=== PATIENT | female | born 1990 | race Caucasian/White ===

== ENCOUNTER 2023-12-10 16:41 | Emergency (ER) | payer OTHER, SELFPAY ==
[2023-12-10] VITALS (7 sets, daily range): BP systolic 94–125; BP diastolic 70–76; PULSE 84–99; RESP 16–24; TEMP 36.8; O2SAT 99–100; BMI 28.3
--- NOTE | 2023-12-10 16:53 | DI.US.S_ITS ---
PROCEDURE: US PELVIC COMPLETE INDICATIONS: and bleeding, unsure how far along TECHNIQUE: Real-time scanning was performed of the pelvic organs, with image documentation. Additional endovaginal scanning was necessary due to incomplete visualization of the adnexal and endometrial structures by transabdominal scanning. COMPARISON: None. FINDINGS: Uterus: Uterus is anteverted and slightly enlarged in size at 8.8 x 6.4 x 5.0 cm. The myometrium is heterogeneous, no discrete uterine fibroid is seen. The endometrium measures 7.6 mm combined thickness. No intrauterine gestational sac is noted. No gross endometrial mass or fluid. Ovaries: The right ovary measures 3.4 x 2.9 x 1.5 cm, with a calculated ovarian volume of 7.6 cc. The left ovary measures 3.6 x 3.0 x 1.9 cm, with a calculated ovarian volume of 10.4 cc. The ovaries have a normal sonographic appearance. Less than 12 follicles can be seen in each ovary. Ill-defined hypoechoic structure with mixed solid and cystic component is seen in right adnexa inferior and medial to the right ovary . Other: No pathologic free abdominal or pelvic fluid. IMPRESSION: 1. No evidence of intrauterine gestation. No endometrial mass or fluid. 2. Normal appearing bilateral ovary. Ill-defined hypoechoic structure with mixed solid and cystic component noted in right adnexa inferior and medial to the right ovary, and show no definite internal vascularity. Ectopic gestational sac cannot be excluded. Follow-up with serial beta HCG levels and follow-up ultrasound is recommended. We strive to produce accurate, complete, and clear reports of imaging services. To assist us in improving patient care, this report was composed using standard report templates and voice recognition software. Therefore, it may contain abnormal punctuation, insertions and/or omissions. Occasional wrong-word or sound-alike substitutions may occur. Though we review the report and make efforts to correct it, we do recommend that the report be read carefully in proper context to recognize any text inaccuracies. Dictated by: Jostin Adame M.D. on 12/10/2023 at 17:48 Approved by: Jostin Adame M.D. on 12/10/2023 at 17:51
--- NOTE | 2023-12-10 17:45 | ED.FEMALEGU ---
HPI - Female Genitourinary <Shandra Lynn MD - Last Filed: 12/11/23 17:22> General Chief complaint: Vaginal Bleeding Stated complaint: just found out , bleeding Time Seen by Provider: 12/10/23 17:32 Source: patient Mode of arrival: Ambulatory History of Present Illness HPI Narrative: 33-year-old female at unknown gestational age presents by private vehicle for vaginal bleeding. Patient states she was told yesterday she was at outside hospital after going in for an unrelated issue. Patient states that she has been experiencing what she believes was normal menstrual period for the last 6 days. She believes she is blood type AB- from previous . Related Data Allergies Allergy/AdvReac Type Severity Reaction Status Date / Time Sulfa (Sulfonamide Allergy Verified 12/10/23 16:47 Antibiotics) Review of Systems <Shandra Lynn MD - Last Filed: 12/11/23 17:22> Review of Systems Narrative: Negative except as noted above Patient History <Shandra Lynn MD - Last Filed: 12/11/23 17:22> alcohol intake frequency: a few times a week Substance Use Type: does not use Exam <Shandra Lynn MD - Last Filed: 12/11/23 17:22> Initial Vital Signs Initial Vital Signs: Vital Signs Temperature 98.2 F 12/10/23 16:47 Pulse Rate 99 H 12/10/23 16:47 Respiratory Rate 18 12/10/23 16:47 Blood Pressure 118/76 12/10/23 16:47 Pulse Oximetry 99 12/10/23 16:47 Oxygen Delivery Method Room Air 12/10/23 16:47 Const: Awake, alert, no acute distress, nontoxic appearing Cardiac: regular rate, regular rhythm RESP: unlabored, clear bilaterally, no wheezing GI: Soft, nontender, nondistended, no rebound, no guarding MSK: Atraumatic, full range of motion, pulses equal Skin: Warm, Dry, intact, no rashes Neuro: AO x3, CN II-XII grossly intact, moves all extremities <Arron Becerra DO - Last Filed: 12/10/23 23:32> Initial Vital Signs Initial Vital Signs: Vital Signs Temperature 98.2 F 12/10/23 16:47 Pulse Rate 99 H 12/10/23 16:47 Respiratory Rate 18 12/10/23 16:47 Blood Pressure 118/76 12/10/23 16:47 Pulse Oximetry 99 12/10/23 16:47 Oxygen Delivery Method Room Air 12/10/23 16:47 Course <Shandra Lynn MD - Last Filed: 12/11/23 17:22> Orders Ordered: Discontinued Medications Rho Immune Globulin (Rho(D) Immune Globulin 1,500 Unit Syringe) 1,500 unit IM NOW ONE Stop: 12/10/23 18:40 Last Admin: 12/10/23 19:14 Dose: 1,500 unit Documented By: SUSAN Vital Signs Vital signs: Vital Signs - 8 hr 12/10/23 16:47 12/10/23 18:08 12/10/23 18:09 Temperature 98.2 F Pulse Rate 99 H 96 H Respiratory Rate 18 Blood Pressure 118/76 114/76 Pulse Oximetry 99 Oxygen Delivery Method Room Air 12/10/23 18:09 12/10/23 18:30 12/10/23 19:00 Temperature Pulse Rate 86 84 85 Respiratory Rate 20 16 Blood Pressure Pulse Oximetry 100 Oxygen Delivery Method 12/10/23 19:01 12/10/23 19:01 12/10/23 19:17 Temperature Pulse Rate 87 85 Respiratory Rate 20 24 Blood Pressure 94/73 Pulse Oximetry 100 Oxygen Delivery Method Room Air 12/10/23 19:17 Temperature Pulse Rate Respiratory Rate Blood Pressure 125/70 Pulse Oximetry Oxygen Delivery Method <Arron Becerra DO - Last Filed: 12/10/23 23:32> Orders Ordered: Discontinued Medications Rho Immune Globulin (Rho(D) Immune Globulin 1,500 Unit Syringe) 1,500 unit IM NOW ONE Stop: 12/10/23 18:40 Last Admin: 12/10/23 19:14 Dose: 1,500 unit Documented By: DAYTONS Vital Signs Vital signs: Vital Signs - 8 hr 12/10/23 16:47 12/10/23 18:08 12/10/23 18:09 Temperature 98.2 F Pulse Rate 99 H 96 H Respiratory Rate 18 Blood Pressure 118/76 114/76 Pulse Oximetry 99 Oxygen Delivery Method Room Air 12/10/23 18:09 12/10/23 18:30 12/10/23 19:00 Temperature Pulse Rate 86 84 85 Respiratory Rate 20 16 Blood Pressure Pulse Oximetry 100 Oxygen Delivery Method 12/10/23 19:01 12/10/23 19:01 12/10/23 19:17 Temperature Pulse Rate 87 85 Respiratory Rate 20 24 Blood Pressure 94/73 Pulse Oximetry 100 Oxygen Delivery Method Room Air 12/10/23 19:17 Temperature Pulse Rate Respiratory Rate Blood Pressure 125/70 Pulse Oximetry Oxygen Delivery Method MDM - Female Genitourinary <Shandra Lynn MD - Last Filed: 12/11/23 17:22> Differential Diagnosis Differential diagnosis: Likely urinary tract infection, bacterial vaginosis and trichomoniasis Lab Data 12/10/23 17:49 12/10/23 17:49 Labs: Lab Results 12/10/23 12/10/23 Range/Units 17:41 17:49 WBC 6.4 (4.5-11.0) X10^3/uL RBC 4.55 (4.0-5.2) X10^6/uL Hgb 13.3 (12.0-16.0) g/dL Hct 40.7 (36-46) % MCV 89.4 (80-100) fL MCH 29.2 (26-34) PG MCHC 32.7 (30-36) % RDW 13.6 (11.6-14.8) % Plt Count 249 (150-400) X10^3/uL Neut % (Auto) 63.7 (50-75) % Lymph % (Auto) 23.4 L (25-40) % Estill % (Auto) 9.2 (3-14) % Eos % (Auto) 2.9 (2-4) % Baso % (Auto) 0.8 (0-2) % Neut # (Auto) 4100 (9732-3867) /uL Lymph # (Auto) 1500 (2206-9283) /uL [place] # (Auto) 600 (0-900) /uL Eos # (Auto) 200 (0-450) /uL Baso # (Auto) 0 (0-100) /uL Sodium 136 L (137-145) mmol/L Potassium 3.9 (3.4-5.1) mmol/L Chloride 105 (98-107) mmol/L Carbon Dioxide 22 (22-32) mmol/L BUN 9 (7-17) mg/dL Creatinine 0.66 (0.52-1.04) mg/dL Estimated GFR > 60 (>60) mL/min BUN/Creatinine Ratio 13.6 (6-22) Glucose 115 H (70-100) mg/dL Calcium 9.0 (8.4-10.2) mg/dL Total Bilirubin 0.6 (0.2-1.3) mg/dL AST 37 H (14-36) IU/L ALT 17 (<35) IU/L Alkaline Phosphatase 61 (38-126) U/L Total Protein 7.1 (6.3-8.2) g/dL Albumin 4.2 (3.5-5.0) g/dL Globulin 2.9 (1.7-4.1) g/dL Albumin/Globulin Ratio 1.4 (1.0-2.8) HCG, Quant 709.4 mIU/mL Urine RBC None seen (0-5/HPF) Urine WBC None seen (0-5/HPF) Ur Squamous Epith Cells 1-5 /hpf (0-5/HPF) Urine Bacteria None seen (None) Ur Culture Indicated? Cult not indicated Vol Urine Centrifuged 10ml (spun) Blood Type A Negative Antibody Screen Negative Urine Dip Bedside Urine Glucose Negative Bedside Urine Bilirubin - Negative Bedside Urine Ketone +/- 5 Urine Specific Quebeck 1.020 Bedside Urine Occult Blood + Bedside Urine pH 6.0 Bedside Urine Protein - Negative Bedside Urine Urobilinogen - Negative Bedside Urine Nitrite - Negative Bedside Urine Leukocytes - Negative Esterase MDM Narrative Medical decision making narrative: Vaginal bleeding, just notified yesterday that she was . Believes blood type a B negative but patient does not have any documented type and screen in our system. I was notified by inorganic chemical technician that there did appear to be a suspicious adnexal mass concerning for ectopic . Still pending formal radiology read. Patient denies history of ectopic previously. Call placed to Dr. Celaya of OBGYN [phone]. Care of patient is signed over to Dr. Becerra at 6:00 p.m., still pending call back from OBGYN. <Arron Becerra, DO - Last Filed: 12/10/23 23:32> Lab Data Attestation: I reviewed the patient's lab results. Labs: Lab Results 12/10/23 12/10/23 Range/Units 17:41 17:49 WBC 6.4 (4.5-11.0) X10^3/uL RBC 4.55 (4.0-5.2) X10^6/uL Hgb 13.3 (12.0-16.0) g/dL Hct 40.7 (36-46) % MCV 89.4 (80-100) fL MCH 29.2 (26-34) PG MCHC 32.7 (30-36) % RDW 13.6 (11.6-14.8) % Plt Count 249 (150-400) X10^3/uL Neut % (Auto) 63.7 (50-75) % Lymph % (Auto) 23.4 L (25-40) % [place] % (Auto) 9.2 (3-14) % Eos % (Auto) 2.9 (2-4) % Baso % (Auto) 0.8 (0-2) % Neut # (Auto) 4100 (8855-6558) /uL Lymph # (Auto) 1500 (2750-8707) /uL [place] # (Auto) 600 (0-900) /uL Eos # (Auto) 200 (0-450) /uL Baso # (Auto) 0 (0-100) /uL Sodium 136 L (137-145) mmol/L Potassium 3.9 (3.4-5.1) mmol/L Chloride 105 (98-107) mmol/L Carbon Dioxide 22 (22-32) mmol/L BUN 9 (7-17) mg/dL Creatinine 0.66 (0.52-1.04) mg/dL Estimated GFR > 60 (>60) mL/min BUN/Creatinine Ratio 13.6 (6-22) Glucose 115 H (70-100) mg/dL Calcium 9.0 (8.4-10.2) mg/dL Total Bilirubin 0.6 (0.2-1.3) mg/dL AST 37 H (14-36) IU/L ALT 17 (<35) IU/L Alkaline Phosphatase 61 (38-126) U/L Total Protein 7.1 (6.3-8.2) g/dL Albumin 4.2 (3.5-5.0) g/dL Globulin 2.9 (1.7-4.1) g/dL Albumin/Globulin Ratio 1.4 (1.0-2.8) HCG, Quant 709.4 mIU/mL Urine RBC None seen (0-5/HPF) Urine WBC None seen (0-5/HPF) Ur Squamous Epith Cells 1-5 /hpf (0-5/HPF) Urine Bacteria None seen (None) Ur Culture Indicated? Cult not indicated Vol Urine Centrifuged 10ml (spun) Blood Type A Negative Antibody Screen Negative Urine Dip Bedside Urine Glucose Negative Bedside Urine Bilirubin - Negative Bedside Urine Ketone +/- 5 Urine Specific [place] 1.020 Bedside Urine Occult Blood + Bedside Urine pH 6.0 Bedside Urine Protein - Negative Bedside Urine Urobilinogen - Negative Bedside Urine Nitrite - Negative Bedside Urine Leukocytes - Negative Esterase Imaging Data US - OB: Radiologist's Impression: PROCEDURE: US PELVIC COMPLETE INDICATIONS: and bleeding, unsure how far along TECHNIQUE: Real-time scanning was performed of the pelvic organs, with image documentation. Additional endovaginal scanning was necessary due to incomplete visualization of the adnexal and endometrial structures by transabdominal scanning. COMPARISON: None. FINDINGS: Uterus: Uterus is anteverted and slightly enlarged in size at 8.8 x 6.4 x 5.0 cm. The myometrium is heterogeneous, no discrete uterine fibroid is seen. The endometrium measures 7.6 mm combined thickness. No intrauterine gestational sac is noted. No gross endometrial mass or fluid. Ovaries: The right ovary measures 3.4 x 2.9 x 1.5 cm, with a calculated ovarian volume of 7.6 cc. The left ovary measures 3.6 x 3.0 x 1.9 cm, with a calculated ovarian volume of 10.4 cc. The ovaries have a normal sonographic appearance. Less than 12 follicles can be seen in each ovary. Ill-defined hypoechoic structure with mixed solid and cystic component is seen in right adnexa inferior and medial to the right ovary . Other: No pathologic free abdominal or pelvic fluid. IMPRESSION: 1. No evidence of intrauterine gestation. No endometrial mass or fluid. 2. Normal appearing bilateral ovary. Ill-defined hypoechoic structure with mixed solid and cystic component noted in right adnexa inferior and medial to the right ovary, and show no definite internal vascularity. Ectopic gestational sac cannot be excluded. Follow-up with serial beta HCG levels and follow-up ultrasound is recommended. MDM Narrative Medical decision making narrative: Vaginal bleeding, just notified yesterday that she was . Believes blood type a B negative but patient does not have any documented type and screen in our system. I was notified by inorganic chemical technician that there did appear to be a suspicious adnexal mass concerning for ectopic . Still pending formal radiology read. Patient denies history of ectopic previously. Call placed to Dr. Celaya of OBGYN [phone]. Care of patient is signed over to Dr. Becerra at 6:00 p.m., still pending call back from OBGYN. Dr becerra: Received turned over. Review patient's history and physical exam. She is Rh negative. She was given RhoGAM. Her beta hCG his under 800. Ultrasound does not show a IUP and there is some suspicious findings around the right ovary. Patient has minimal if any abdominal tenderness but is having bleeding. Discussed the case with Dr. Celaya on-call for OB. Who recommended the patient be discharged home. Was given ectopic return precautions. Will contact the patient tomorrow for a follow-up within the next 48 hours for repeat beta hCG. I discussed all this with the patient. The patient was given information for Dr. Celaya's office. The no was sent to Dr. Celaya as well. Patient was given strict return precautions. She expressed understanding and agreement. Discharge Plan Departure Patient Disposition: Home Clinical Impression: Threatened miscarriage Instructions: Threatened Miscarriage Activity Restrictions/Additional Instructions: You should receive a call from the journeyman pipef[facility] office here at the hospital sometime tomorrow morning for a follow-up. If you do not hear from them by noon please contact them with the number provided below for follow-up. If your symptoms worsen to include fevers, worsening pain, bleeding more than several pads an hour for several hours in a row please return to the emergency department for further evaluation. Referrals: Brice Celaya MD [Physician] - Candida Tai RN [Primary Care Provider] - Stand Alone Forms: Patient Portal/API
[2023-12-10 18:10] LABS: Add Manual Diff / Slide Review NO; Basophils Absolute Auto 0 /uL (0-100); Basophils Percent Auto 0.8 % (0-2); Eosinophils Absolute Auto 200 /uL (0-450); Eosinophils Percent Auto 2.9 % (2-4); Hematocrit 40.7 % (36-46); Hemoglobin 13.3 g/dL (12.0-16.0); Lymphocytes Absolute Auto 1500 /uL (1100-4500); Lymphocytes Percent Auto 23.4 % (25-40); Mean Corpuscular HGB Conc 32.7 % (30-36); Mean Corpuscular Hemoglobin 29.2 PG (26-34); Mean Corpuscular Volume 89.4 fL (80-100); Monocytes Absolute Auto 600 /uL (0-900); Monocytes Percent Auto 9.2 % (3-14); Neutrophils Absolute Auto 4100 /uL (1500-7000); Neutrophils Percent Auto 63.7 % (50-75); Platelet Count 249 X10^3/uL (150-400); Red Blood Cell Count 4.55 X10^6/uL (4.0-5.2); Red Cell Distribution Width 13.6 % (11.6-14.8); White Blood Cell Count 6.4 X10^3/uL (4.5-11.0)
[2023-12-10 18:13] LABS: Bacteria Urine None Seen; RBC Urine None Seen (0-5/HPF); Squamous Epithelial Cell Urine 1-5 /HPF (0-5/HPF); Urine Volume 10mL (spun); WBC Urine None Seen (0-5/HPF)
[2023-12-10 18:14] LABS: Culture Indicated Urine Cult Not Indicated
[2023-12-10 18:26] LABS: Alanine Aminotransferase 17 IU/L (<35); Albumin 4.2 g/dL (3.5-5.0); Albumin Globulin Ratio 1.4 (1.0-2.8); Alkaline Phosphatase 61 U/L (38-126); Aspartate Aminotransferase 37 IU/L (14-36); BUN Creatinine Ratio 13.6 (6-22); Bilirubin Total 0.6 mg/dL (0.2-1.3); Blood Urea Nitrogen 9 mg/dL (7-17); Carbon Dioxide 22 mmol/L (22-32); Chloride 105 mmol/L (98-107); Estimated Glomerular Filt Rate > 60 mL/min (>60); Globulin 2.9 g/dL (1.7-4.1); Glucose 115 mg/dL (70-100); HEMOLYSIS 47 (0-50); Potassium 3.9 mmol/L (3.4-5.1); Sodium 136 mmol/L (137-145); Total Protein 7.1 g/dL (6.3-8.2)
[2023-12-10 18:43] LABS: HCG Quantitative /Beta subunit 709.4 mIU/mL
[2023-12-10] MEDS: RHO(D) IMMUNE GLOBULIN 1,500 UNIT SYRINGE 1500 UNIT IM (19:14)
--- NOTE | 2023-12-10 19:24 | PC.NURSE ---
pt states she was seen at [facility] yesterday for lack of BM for two weeks and called today told she was . Pt took home test that was also positive. she is here due to vaginal bleeding that she thought was her regular period. patient states she has had regular periods since her done in august. she did not know she was .
== END 2023-12-10 19:41 | disposition home or self-care (01) ==
PROVIDERS: Emergency Medicine; Emergency Provider Emergency Medicine; PCP Nurse Practitioner Family
DX: O20.0 Threatened abortion (principal); Z3A.00 Weeks of gestation of pregnancy not specified
CPT/HCPCS: 36415; 76830; 76856; 80053; 81003; 81015; 84702; 85025; 86850; 86900; 86901; 96372; 99284; J2790

== ENCOUNTER → 2023-12-12 16:50 | Outpatient (CLI) | payer OTHER, SELFPAY ==
[2023-12-12 17:53] LABS: HCG Quantitative /Beta subunit 890.5 mIU/mL
== END ==
PROVIDERS: PCP Nurse Practitioner Family; Referring Provider Obstetrics & Gynecology; Visit Provider Obstetrics & Gynecology
DX: O20.0 Threatened abortion (principal)
CPT/HCPCS: 36415; 84702

== ENCOUNTER 2023-12-12 17:18 | Observation (INO) | payer OTHER, SELFPAY ==
[2023-12-12] VITALS (11 sets, daily range): BP systolic 110–127; BP diastolic 69–80; PULSE 81–104; RESP 11–19; TEMP 36.7–36.8; O2SAT 92–100; BMI 28.3
--- NOTE | 2023-12-12 | PATH_ITS ---
[facility] Accession Number: [id number] No. of containers..01 Tissue . 01 Material submitted: . fallopian tube - RIGHT FALLOPIAN TUBE . 01 Diagnosis: RIGHT FALLOPIAN TUBE, RIGHT SALPINGECTOMY: Findings consistent with ectopic tubal , please see microscopic description. Background salpingitis isthmica nodosa. Negative for malignancy. MRV 12/17/2023 1334 Local . 01 Electronically signed: . Jeromy Rhodes MD, Pathologist NPI- [id number] . 01 Gross description: . Received in formalin with two identifiers and right fallopian tube, is a dilated fallopian tube measuring 6.2 cm in length and ranging from 0.7 to 2.2 cm in diameter. The serosa is violaceous and intact with a cystic structure measuring 0.7 cm in greatest dimension, filled with sheets serous fluid. Sectioning reveals a dilated lumen filled with solid hemorrhagic material with no tissue identified. Night Filler sections to include one-half of bisected fimbriae and cross-sections are submitted in cassettes A1-A2. ([id number]) /SHARI 12/16/2023 1028 Local . 01 Microscopic: . Microscopic examination reveals dilated lumen of the fallopian tube with hemorrhage, immature chorionic villi, and focal decidualized changes, consistent with ectopic tubal . 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 . There is no atypia or malignancy. . 01 Pathologist provided ICD-10: O00.101 . 01 CPT . 319734 Specimen Comment: A courtesy copy of this report has been sent to [facility] Pathology Performed at: 01 [facility] [address] [place] [address] [address] [facility], [place], [place] [id number] MD Jamari Larson MD Phone: [phone]
--- NOTE | 2023-12-12 17:30 | DI.US.S_ITS ---
PROCEDURE: US PELVIC COMPLETE INDICATIONS: right possible ectopic TECHNIQUE: Real-time scanning was performed of the pelvic organs, with image documentation. Additional endovaginal scanning was necessary due to incomplete visualization of the adnexal and endometrial structures by transabdominal scanning. COMPARISON: [facility], US, US PELVIC COMPLETE, 12/10/2023, 17:16. FINDINGS: Uterus: Uterus is anteverted and normal in size at 8.4 x 6.5 x 4.9 cm. The myometrium is homogeneous. The endometrium measures 4 mm combined thickness. No intrauterine is seen. Ovaries: The right ovary measures 3.2 x 1.7 x 1.9 cm, with a calculated ovarian volume of 5.4 cc. The left ovary measures 3.6 x 2.3 x 2.3 cm, with a calculated ovarian volume of 10.0 cc. The ovaries have a normal sonographic appearance. Less than 12 follicles can be seen in each ovary. Persistent heterogeneous right adnexal mass measuring 2.4 x 2.0 x 1.8 centimeters with vascularity. Other: No pathologic free abdominal or pelvic fluid. IMPRESSION: Persistent right adnexal mass measuring 2.4 centimeters with heterogeneous tissue and vascularity. Ectopic is not excluded and beta HCG trend and follow-up ultrasound is recommended. No intrauterine is seen. We strive to produce accurate, complete, and clear reports of imaging services. To assist us in improving patient care, this report was composed using standard report templates and voice recognition software. Therefore, it may contain abnormal punctuation, insertions and/or omissions. Occasional wrong-word or sound-alike substitutions may occur. Though we review the report and make efforts to correct it, we do recommend that the report be read carefully in proper context to recognize any text inaccuracies. Dictated by: Michael Arredondo M.D. on 12/12/2023 at 18:54 Approved by: Michael Arredondo M.D. on 12/12/2023 at 18:56
[2023-12-12 18:19] LABS: Add Manual Diff / Slide Review NO; Basophils Absolute Auto 100 /uL (0-100); Basophils Percent Auto 0.8 % (0-2); Eosinophils Absolute Auto 300 /uL (0-450); Eosinophils Percent Auto 4.9 % (2-4); Hemoglobin 12.5 g/dL (12.0-16.0); Lymphocytes Absolute Auto 1600 /uL (1100-4500); Lymphocytes Percent Auto 26.2 % (25-40); Mean Corpuscular HGB Conc 32.9 % (30-36); Mean Corpuscular Hemoglobin 29.4 PG (26-34); Mean Corpuscular Volume 89.5 fL (80-100); Monocytes Absolute Auto 600 /uL (0-900); Monocytes Percent Auto 9.5 % (3-14); Neutrophils Absolute Auto 3600 /uL (1500-7000); Neutrophils Percent Auto 58.6 % (50-75); Platelet Count 235 X10^3/uL (150-400); Red Blood Cell Count 4.25 X10^6/uL (4.0-5.2); Red Cell Distribution Width 13.9 % (11.6-14.8); White Blood Cell Count 6.2 X10^3/uL (4.5-11.0)
[2023-12-12 18:33] LABS: Alanine Aminotransferase 14 IU/L (<35); Albumin Globulin Ratio 1.4 (1.0-2.8); Alkaline Phosphatase 53 U/L (38-126); Aspartate Aminotransferase 20 IU/L (14-36); Bilirubin Total 0.5 mg/dL (0.2-1.3); Blood Urea Nitrogen 10 mg/dL (7-17); Calcium 8.8 mg/dL (8.4-10.2); Carbon Dioxide 27 mmol/L (22-32); Chloride 105 mmol/L (98-107); Estimated Glomerular Filt Rate > 60 mL/min (>60); Globulin 2.8 g/dL (1.7-4.1); Glucose 91 mg/dL (70-100); HEMOLYSIS < 15 (0-50); Potassium 3.4 mmol/L (3.4-5.1); Sodium 136 mmol/L (137-145); Total Protein 6.8 g/dL (6.3-8.2)
--- NOTE | 2023-12-12 18:36 | ED_ITS ---
HPI - General Adult General Chief complaint: Urogenital-Female Stated complaint: poss ectopic preg/pain/ref OB Time Seen by Provider: 12/12/23 17:30 Source: patient Mode of arrival: Ambulatory History of Present Illness HPI narrative: Patient is a 33-year-old female. Rh negative. I evaluated her here in the emergency department approximately 48 hours ago. Had an indeterminate with vaginal bleeding. No abdominal pain. Had a hCG quantitative level that was below threshold and no IUP seen on ultrasound. She had a follow-up today. Was sent back to the emergency department she now has abdominal discomfort. Repeat quant shows very minimal rise. Ultrasound is relatively unremarkable. She reports no vaginal bleeding. No fevers. No vomiting. Related Data Allergies Allergy/AdvReac Type Severity Reaction Status Date / Time Sulfa (Sulfonamide Allergy Verified 12/12/23 19:51 Antibiotics) Review of Systems Review of Systems Narrative: See HPI Patient History Social History household members: spouse Smoking Status: Former smoker Smoking Status: Former smoker alcohol intake frequency: a few times a week Substance Use Type: does not use Exam Initial Vital Signs Initial Vital Signs: Vital Signs Temperature 98.3 F 12/12/23 17:27 Pulse Rate 99 H 12/12/23 17:27 Respiratory Rate 18 12/12/23 17:27 Blood Pressure 115/77 12/12/23 17:27 Pulse Oximetry 100 12/12/23 17:27 Oxygen Delivery Method Room Air 12/12/23 17:27 HENMT Head: normal to inspection and normocephalic Resp Effort & Inspection: normal respiratory effort Cardio Rate: tachycardic GI Inspection: non-distended Course Orders Ordered: ED Orders 12/12/23 17:30 US pelvic complete Stat 12/12/23 18:12 CBC Auto Diff [Complete Blood Count AUTO DIFF] Stat CMP [Comprehensive Metabolic Panel] Stat HCG Quantitative /Beta subunit Stat Discontinued Medications Bupivacaine HCl (Bupivacaine 0.25% (Pf) Vial) 30 ml INJ NOW ONE Stop: 12/12/23 21:23 Last Admin: 12/12/23 21:22 Dose: 30 ml Documented By: EW Hydromorphone HCl (Hydromorphone 1 Mg Inj) 0 mg IV Q5MIN PRN PRN Reason: Pain, Mild (1-3) Hydromorphone HCl (Hydromorphone 1 Mg Inj) 0 mg IV Q5MIN PRN PRN Reason: Pain, Moderate (4-6) Last Admin: 12/12/23 22:15 Dose: 0.5 mg Documented By: AMERICO Hydromorphone HCl (Hydromorphone 1 Mg Inj) 0 mg IV Q5MIN PRN PRN Reason: Pain, Severe (7-10) Lactated Ringer's (Lactated Ringers) 1,000 mls @ 42 mls/hr IV CONT FAINA Last Infusion: 12/12/23 22:37 Dose: 42 mls/hr Documented By: Admin: 12/12/23 21:38 Dose: 42 mls/hr Documented By: Infusion: 12/12/23 21:38 Dose: Infused Documented By: Admin: 12/12/23 19:50 Dose: 42 mls/hr Documented By: AMERICO Lactated Ringer's (Lactated Ringers) 1,000 mls @ 42 mls/hr IV NOW ONE Stop: 12/13/23 21:25 Last Infusion: 12/12/23 21:38 Dose: Infused Documented By: Admin: 12/12/23 21:37 Dose: 42 mls/hr Documented By: EMERITA Ondansetron HCl (Ondansetron 4 Mg/2 Ml Inj) 4 mg IV NOW PRN PRN Reason: Nausea And Vomiting Last Admin: 12/12/23 22:16 Dose: 4 mg Documented By: AMERICO Oxycodone HCl (Oxycodone Ir 5 Mg Tablet) 5 mg PO PACUNOW PRN PRN Reason: Mild or moderate pain Last Admin: 12/12/23 22:25 Dose: 5 mg Documented By: Admin: 12/12/23 22:09 Dose: 5 mg Documented By: AMERICO Vital Signs Vital signs: Vital Signs - 8 hr 12/12/23 17:27 Temperature 98.3 F Pulse Rate 99 H Respiratory Rate 18 Blood Pressure 115/77 Pulse Oximetry 100 Oxygen Delivery Method Room Air Medical Decision Making Medical Records Medical records reviewed: Yes I reviewed the patient's medical records. Lab Data Lab results reviewed: Yes I reviewed the patient's lab results. 12/12/23 18:12 12/12/23 18:12 Labs: Lab Results 12/12/23 12/12/23 Range/Units 18:11 18:12 WBC 6.2 (4.5-11.0) X10^3/uL RBC 4.25 (4.0-5.2) X10^6/uL Hgb 12.5 (12.0-16.0) g/dL Hct 38.0 (36-46) % MCV 89.5 (80-100) fL MCH 29.4 (26-34) PG MCHC 32.9 (30-36) % RDW 13.9 (11.6-14.8) % Plt Count 235 (150-400) X10^3/uL Neut % (Auto) 58.6 (50-75) % Lymph % (Auto) 26.2 (25-40) % [place] % (Auto) 9.5 (3-14) % Eos % (Auto) 4.9 H (2-4) % Baso % (Auto) 0.8 (0-2) % Neut # (Auto) 3600 (7330-7847) /uL Lymph # (Auto) 1600 (0677-6492) /uL [place] # (Auto) 600 (0-900) /uL Eos # (Auto) 300 (0-450) /uL Baso # (Auto) 100 (0-100) /uL Sodium 136 L (137-145) mmol/L Potassium 3.4 (3.4-5.1) mmol/L Chloride 105 (98-107) mmol/L Carbon Dioxide 27 (22-32) mmol/L BUN 10 (7-17) mg/dL Creatinine 0.77 (0.52-1.04) mg/dL Estimated GFR > 60 (>60) mL/min BUN/Creatinine Ratio 13.0 (6-22) Glucose 91 (70-100) mg/dL Calcium 8.8 (8.4-10.2) mg/dL Total Bilirubin 0.5 (0.2-1.3) mg/dL AST 20 (14-36) IU/L ALT 14 (<35) IU/L Alkaline Phosphatase 53 (38-126) U/L Total Protein 6.8 (6.3-8.2) g/dL Albumin 4.0 (3.5-5.0) g/dL Globulin 2.8 (1.7-4.1) g/dL Albumin/Globulin Ratio 1.4 (1.0-2.8) HCG, Quant 892.6 mIU/mL Blood Type A Negative Antibody Screen Positive Antibody Identification Anti-D Point of Care Testing Test Results Positive Point of care testing: Point of Care Testing Test Results Positive Imaging Data US - OB: Radiologist's Impression: PROCEDURE: US PELVIC COMPLETE INDICATIONS: right possible ectopic TECHNIQUE: Real-time scanning was performed of the pelvic organs, with image documentation. Additional endovaginal scanning was necessary due to incomplete visualization of the adnexal and endometrial structures by transabdominal scanning. COMPARISON: [facility], US, US PELVIC COMPLETE, 12/10/2023, 17:16. FINDINGS: Uterus: Uterus is anteverted and normal in size at 8.4 x 6.5 x 4.9 cm. The myometrium is homogeneous. The endometrium measures 4 mm combined thickness. No intrauterine is seen. Ovaries: The right ovary measures 3.2 x 1.7 x 1.9 cm, with a calculated ovarian volume of 5.4 cc. The left ovary measures 3.6 x 2.3 x 2.3 cm, with a calculated ovarian volume of 10.0 cc. The ovaries have a normal sonographic appearance. Less than 12 follicles can be seen in each ovary. Persistent heterogeneous right adnexal mass measuring 2.4 x 2.0 x 1.8 centimeters with vascularity. Other: No pathologic free abdominal or pelvic fluid. IMPRESSION: Persistent right adnexal mass measuring 2.4 centimeters with heterogeneous tissue and vascularity. Ectopic is not excluded and beta HCG trend and follow-up ultrasound is recommended. No intrauterine is seen. MDM Narrative Medical decision making narrative: Patient was seen by scroll machine operator here in the emergency department in the plan will be is to take her to the operating room. She received RhoGAM 48 hours ago. Patient expressed understanding of the plan. Discharge Plan Departure Patient Disposition: Admitted to Surgery Clinical Impression: Ectopic Qualifiers: Location of ectopic : tubal Intrauterine status: without intrauterine Laterality: right Qualified Code(s): O00.101 - Right tubal without intrauterine Admit Date/Time: 12/12/23 18:39 Admit Provider: Jada Ponce
[2023-12-12 18:50] LABS: HCG Quantitative /Beta subunit 892.6 mIU/mL
--- NOTE | 2023-12-12 18:52 | P.HPOB_ITS ---
History of Present Illness History of Present Illness Reason for admission: other ( of unknown location ) Narrative: Kizzy Osborn is a 33 year old female at unknown early gestational age, concern for possible ectopic. Pt was seen originally in ED 12/09 with c/o vaginal bleeding, R sided pelvic pain with +UPT. bHCG 709 at that time, TVUS without evidence of IUP and concern for possible R adnexal mass unable to exclude ectopic. Pt was hemodynamically stable and was discharged to home after receiving Rhogam for AB- blood type and close interval follow-up in office today. At time of office presentation pt stated that she was having more pelvic pain and to expedite care was transferred to ED for further evaluation. Repeat bHCG today is 890; formal US report is pending however on review of images there is now clear evidence of free CDS fluid vs bleeding. Pt states current pain is 5/10 but increasing. Last solid PO at 1100 today. TSVD x1, denies h/o prior ectopic, denies h/o GC/CT/PID, non-smoker No current hormonal contraception PFSH Social History Smoking Status: Former smoker Meds Home Medications and Allergies Allergies Allergy/AdvReac Type Severity Reaction Status Date / Time Sulfa (Sulfonamide Allergy Verified 12/12/23 16:46 Antibiotics) Review of Systems Review of Systems Narrative: +pelvic pain, vaginal spotting, remainder as per HPI Exam Vital Signs (past 8 hours): - 12/12/23 17:27 Temperature 98.3 F Pulse Rate 99 H Respiratory Rate 18 Blood Pressure 115/77 Pulse Oximetry 100 Oxygen Delivery Method Room Air Oxygen Delivery Method Room Air Narrative Exam Narrative: well-nourished female, uncomfortable but non-toxic appearing Const Nutritional Appearance: average body habitus HENMT Mouth: moist mucous membranes Neck Neck: normal visual inspection Resp Effort & Inspection: normal respiratory effort GI Inspection: normal to inspection Other: diffusely tender to deep palpation BLQ, +rebound with deep palpation, soft/non- rigid Other: deferred per shared decision making with patient Skin General: no rashes or lesions noted Psych Appearance: grossly normal Objective Imaging pelvic US : My impression: +CDS fluid, no evidence of IUP; consistent with ruptured ectopic Labs 12/12/23 18:12 12/12/23 18:12 Labs: Laboratory Results - last 24 hr 12/12/23 18:12 WBC 6.2 RBC 4.25 Hgb 12.5 Hct 38.0 MCV 89.5 MCH 29.4 MCHC 32.9 RDW 13.9 Plt Count 235 Neut % (Auto) 58.6 Lymph % (Auto) 26.2 [place] % (Auto) 9.5 Eos % (Auto) 4.9 H Baso % (Auto) 0.8 Neut # (Auto) 3600 Lymph # (Auto) 1600 [place] # (Auto) 600 Eos # (Auto) 300 Baso # (Auto) 100 Sodium 136 L Potassium 3.4 Chloride 105 Carbon Dioxide 27 BUN 10 Creatinine 0.77 Estimated GFR > 60 BUN/Creatinine Ratio 13.0 Glucose 91 Calcium 8.8 Total Bilirubin 0.5 AST 20 ALT 14 Alkaline Phosphatase 53 Total Protein 6.8 Albumin 4.0 Globulin 2.8 Albumin/Globulin Ratio 1.4 HCG, Quant 892.6 Assessment & Plan Assessment and plan (1) Ectopic : Qualifiers: Intrauterine status: without intrauterine L aterality: right Location of ectopic : tubal Qualified Code(s): O 00.101 - Right tubal without intrauterine Status: Acute Plan Patient counseled on recommendation to proceed to OR for definitive evaluation given her worsening pain and evidence of CDS fluid on today's pelvic US in tandem with inappropriate rise in bHCG. Risks, benefits and alternatives to surgical management were review and patient desires to proceed with definitive surgical management at this time. 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 ED provider updated on plan of care. Pt NPO, will plan to consent in pre-operative area. Known Rh neg s/p rhogam at time of initial ED encounter 12/09 without indication for repeat administration today Time Spent With Patient Time with patient: 30 to 49 minutes with 50% spent counseling/coordinating care
[2023-12-12] MEDS: LACTATED RINGERS 1,000 ML 42 ML IV ×3 (19:50→21:38)
--- NOTE | 2023-12-12 21:20 | SUR.OPER ---
Lithotomy on padded OR bed. [place] Pad Positioner under torso. Head on pillow, arms padded and tucked at sides. Legs secured in padded yellow fins stirrups.
[2023-12-12] MEDS: BUPIVACAINE 0.25% (PF) VIAL 30 ML INJ (21:22)
--- NOTE | 2023-12-12 21:55 | PM.OP.1 ---
Operative Date/Time/Diagnoses Date of procedure: 12/12/23 Time of procedure: 21:55 Pre-op diagnosis: ectopic Post-op diagnosis: same Procedure & Clinicians Procedure: Diagnostic laparoscopy, R salpingectomy, dilation and curettage Same procedure as scheduled: Yes Indications: ectopic Surgeon: Jada Ponce Click Yes if Unassisted: Yes Anesthesia Type: General Operative Notes Findings: Small volume hemoperitoneum noted on entry, dilated and engorged R fallopian tube with noted ectopic within the ampulla, non-ruptured grossly normal intra-abdominal survey Closure Type: primary Specimen(s): other (R fallopian tube ) Estimated Blood Loss (mL): 10 Blood products transfused: none Procedure in detail: Pt was taken to the operating room, transferred to OR table in supine position and anesthesia was induced with placement of ETT. The patient was then placed in the lithotomy position and had her legs placed in Efra stirrups. An exam under anesthesia was performed. Patient was prepped and draped in a sterile fashion and the bladder was straight catheterized for 100cc clear urine. A time out was then performed. The infraumbilical region was superficially infiltrated with 5cc 0.25% lidocaine for analgesia. A 1cm infraumbilical incision was made and abdominal entry was achieved under direct visualization using the 5mm optical trocar. The abdomen was insufflated to a pressure of 15mmHg with CO2. Abdominal survey was completed with findings as noted above. Under direct visualization two lateral side ports were then placed following superficial infiltration of the dermis with 0.25% lidocaine. Using the 5mm PowerSeal device in tandem with the atraumatic grasper the R fallopian tube was grasped, elevated and dissected away from the mesosalpinx followed by amputation of the fallopian tube at the level of the cornua. Dissection bed was inspected and noted to be hemostatic. The infraumbilical incision was extended sharply using the knife to 2cm. The original 5mm port was removed and replaced with 11mm trocar. The small endocatch bag was placed via the 11mm trocar and the specimen was placed within the bag under direct visualization. The specimen was then brought to the level of the incision and removed without difficulty. The abdomen was irrigated and suctioned to remove any remaining hemoperitoneum. Surgical beds were again inspected and noted to be hemostatic. All instruments were removed and the gas was allowed to escape followed by removal of all trocars. The fascia of the infraumbilical incision was closed using 0-vicryl on a UR6 needle in a single figure of eight. The skin of all incisions was then closed with 4-0 monocryl followed by application of dermabond. Attention was then turned to the vaginal portion of the case. A sterile speculum was inserted into the vagina and the cervix was easily visualized. The anterior cervix was grasped using a single tooth tenaculum and under gentle traction the uterus sounded to 8cm. The endometrium was then gentle curetted until a gritty texture was noted throughout. The tenaculum was removed and hemostasis was noted at the insertion sites. The speculum was removed. The patient had her legs taken out of stirrups. There were no complications and patient was extubated, transferred to PACU in stable condition. Complications: none Post-operative Condition: stable Disposition: PACU Plan for aftercare: anticipate dc to home
[2023-12-12] MEDS: OXYCODONE IR 5 MG TABLET PO ×2 (22:09→22:25)
[2023-12-12] MEDS: HYDROMORPHONE 1 MG INJ IV (22:15)
[2023-12-12] MEDS: ONDANSETRON 4 MG/2 ML INJ IV (22:16)
--- NOTE | 2023-12-12 22:38 | SUR.PHASEII ---
Dr Ponce replacing clitoral piercing at bedside in recovery.
== END 2023-12-12 22:50 | disposition home or self-care (01) ==
LOC: ED 18:37 → AC 18:39
PROVIDERS: Emergency Medicine; Admitting Provider Obstetrics & Gynecology; Emergency Provider Emergency Medicine; PCP Nurse Practitioner Family; Referring Provider Emergency Medicine; Visit Provider Obstetrics & Gynecology
PROC: (CPT 49320; principal; 2023-12-12 19:30)
PROC: 0UDB8ZZ Extraction of Endometrium, Via Natural or Artificial Opening Endoscopic (ICD-10-PCS; CPT 58558; 2023-12-12 19:30)
DX: O00.101 Right tubal pregnancy without intrauterine pregnancy (principal); O20.0 Threatened abortion
CPT/HCPCS: 59151; 58120; 36415; 76830; 76856; 80053; 81025; 84702; 85025; 86850; 86870; 86900; 86901; 99222; 99283; 99284; G0378; J1100; J1170; J1885; J2405; J2704; J3010

== ENCOUNTER → 2024-01-13 16:02 | Outpatient (CLI) | payer OTHER, SELFPAY ==
[2024-01-13 16:48] LABS: Add Manual Diff / Slide Review NO; Basophils Absolute Auto 0 /uL (0-100); Basophils Percent Auto 0.6 % (0-2); Eosinophils Absolute Auto 200 /uL (0-450); Eosinophils Percent Auto 3.4 % (2-4); Hematocrit 38.7 % (36-46); Hemoglobin 12.9 g/dL (12.0-16.0); Lymphocytes Absolute Auto 1700 /uL (1100-4500); Mean Corpuscular HGB Conc 33.4 % (30-36); Mean Corpuscular Hemoglobin 29.8 PG (26-34); Mean Corpuscular Volume 89.5 fL (80-100); Monocytes Absolute Auto 600 /uL (0-900); Monocytes Percent Auto 9.2 % (3-14); Neutrophils Absolute Auto 3900 /uL (1500-7000); Neutrophils Percent Auto 60.8 % (50-75); Platelet Count 269 X10^3/uL (150-400); Red Blood Cell Count 4.33 X10^6/uL (4.0-5.2); Red Cell Distribution Width 13.8 % (11.6-14.8); White Blood Cell Count 6.4 X10^3/uL (4.5-11.0)
[2024-01-13 17:18] LABS: HCG Quantitative /Beta subunit < 2.4 mIU/mL
== END ==
PROVIDERS: PCP Nurse Practitioner Family; Referring Provider Obstetrics & Gynecology; Visit Provider Obstetrics & Gynecology
DX: O00.90 Unspecified ectopic pregnancy without intrauterine pregnancy (principal); Z87.59 Personal history of other complications of pregnancy, childbirth and the puerperium
CPT/HCPCS: 36415; 84702; 85025

== ENCOUNTER → 2024-03-23 15:45 | Outpatient (CLI) | payer OTHER, SELFPAY ==
--- NOTE | 2024-03-23 15:46 | DI.CT.S_ITS ---
PROCEDURE: CT ABDOMEN PELVIS W CON INDICATIONS: postoperative pain r/o hernia TECHNIQUE: After the administration of intravenous contrast, axial sections acquired from the lung bases to the pubic symphysis. Coronal and sagittal reformats were performed. For radiation dose reduction, the following was used: automated exposure control, adjustment of mA and/or kV according to patient size. COMPARISON: [facility], , PELVIC COMPLETE, 12/12/2023, 17:58. FINDINGS: Image quality: Diagnostic. Lower Chest: No significant findings. ABDOMEN: Liver: No solid mass. Gallbladder: No radiopaque gallstones or wall thickening. Biliary ducts: No biliary dilation. Pancreas: No ductal dilation. Spleen: Size is within normal limits. Adrenal Glands: No adrenal nodules. Kidneys and Ureters: No hydronephrosis. No solid mass. No complex renal cystic lesion which requires follow up. Stomach and Bowel: Normal colonic caliber, without significant wall thickening. Significant colonic stool is present. Scattered diverticular present without inflammatory change. Peritoneum: No abnormal intraperitoneal fluid. No free air. Ventral Wall: Small fat containing ventral hernia. Abdominal Nodes: No retroperitoneal or mesenteric adenopathy by size criteria. Vessels: Aorta and inferior vena cava are normal in size. PELVIS: Pelvic Organs: Unremarkable. Bladder: No bladder wall thickening, accounting for underdistention. Pelvic Nodes: No enlarged lymph nodes. Miscellaneous: No inguinal hernias are seen. Bones: No aggressive osseous abnormality. IMPRESSION: Prominent colonic stool without obstruction. Diverticulosis. Small fat containing ventral hernia. Dictated by: Lupe Velazquez M.D. on 03/23/2024 at 22:34 Approved by: Lupe Velazquez M.D. on 03/23/2024 at 22:35
== END ==
PROVIDERS: PCP Nurse Practitioner Family; Referring Provider Obstetrics & Gynecology; Visit Provider Obstetrics & Gynecology
DX: K57.90 Diverticulosis of intestine, part unspecified, without perforation or abscess without bleeding (principal); K43.9 Ventral hernia without obstruction or gangrene; R10.9 Unspecified abdominal pain; G89.18 Other acute postprocedural pain
CPT/HCPCS: 74177; Q9967